=== PATIENT | male | born 1945 | race Caucasian/White ===

== ENCOUNTER 2023-07-26 11:16 | Day surgery (SDC) | payer MEDICARE, BC ==
[2023-07-26] VITALS (11 sets, daily range): BP systolic 106–176; BP diastolic 64–99; PULSE 68–81; RESP 13–26; TEMP 97.9; O2SAT 20–98
[~2023-07-26] VITALS: Ht 185.4 cm; Wt 85.3 kg
[2023-07-26] MEDS ORDERED: BENA40TA90 PO (11:42)
[2023-07-26] MEDS ORDERED: CALC1TAB2 PO (11:42)
[2023-07-26] MEDS ORDERED: ROSU10TA28 PO (11:42)
[2023-07-26] MEDS ORDERED: ASPI81TA52 PO (11:42)
[2023-07-26] MEDS ORDERED: [UNRECOGNIZED DRUG - OTHER] PO (11:42)
[2023-07-26] MEDS ORDERED: verapamil 2.5 mg/ml inj IV ONE (11:56)
[2023-07-26] MEDS ORDERED: LIDOcaine 1% (10mg/ml) 2ml vial ONE ×2 (11:56→12:10)
[2023-07-26] MEDS ORDERED: midazolam 1 mg/ML 2ml injection ONE (11:56)
[2023-07-26] MEDS ORDERED: fentaNYL/PF 50MCG/1 ML 2ML syringe ONE (11:56)
[2023-07-26] MEDS ORDERED: iohexol 350MG/ML 100ml bottle IV ONE (11:57)
[2023-07-26] MEDS ORDERED: heparin 1,000unit/ml 10ml vial 10 ML ONE (11:57)
[2023-07-26] MEDS ORDERED: nitroGLYCERIN 500mcg/5mL D5W 5 ML IV ONE (11:58)
[2023-07-26] MEDS: normal saline 1,000 ML IV SCH (12:00)
[2023-07-26 12:02] LABS: BASOPHILS # (AUTO) 0.1 X10'3 (0-0.2); BASOPHILS % (AUTO) 0.7 % (0-1); EOSINOPHILS # (AUTO) 0.1 X10'3 (0-0.9); EOSINOPHILS % (AUTO) 0.8 % (0-6); HEMATOCRIT 45.3 % (42.0-52.0); HEMOGLOBIN 15.3 g/dl (14.0-17.9); LYMPHOCYTES # (AUTO) 1.5 X10'3 (1.1-4.8); LYMPHOCYTES % (AUTO) 18.9 % (21-51); MEAN CORPUSCULAR HEMOGLOBIN 32.4 PG (27.0-31.0); MEAN CORPUSCULAR HGB CONC 33.8 g/dL (33.0-36.5); MEAN CORPUSCULAR VOLUME 95.8 FL (78-98); MONOCYTES # (AUTO) 0.7 X10'3 (0-0.9); MONOCYTES % (AUTO) 8.5 % (2-12); NEUTROPHILS # (AUTO) 5.5 X10'3 (1.8-7.7); NEUTROPHILS % (AUTO) 71.1 % (42-75); PLATELET COUNT 213 X10'3 (140-440); RED BLOOD COUNT 4.73 X10'6 (4.70-6.10); RED CELL DISTRIBUTION WIDTH 13.9 % (11.5-14.5); WHITE BLOOD COUNT 7.7 X10'3 (4.5-11.0)
[2023-07-26 12:19] LABS: ALBUMIN 4.9 G/DL (3.4-5.0); ANION GAP 15 (8-16); BLOOD UREA NITROGEN 23 MG/DL (7-18); BUN/CREATININE RATIO 15.5 (10.0-20.0); CALCIUM 10.1 MG/DL (8.5-10.1); CHLORIDE 105 MMOL/L (99-107); CREATININE 1.48 MG/DL (0.60-1.10); GLUCOSE 100 MG/DL (70-104); POTASSIUM 3.8 MMOL/L (3.5-5.1); SODIUM 143 MMOL/L (135-145); TOTAL CARBON DIOXIDE 23.5 MMOL/L (24-32); eCRCL 46 ML/MIN; eGFR 46 ML/MIN
[2023-07-26 12:20] LABS: APTT 24 SECONDS (22-32); PROTHROMBIN TIME 10.3 SECONDS (9.0-12.0)
[2023-07-26] MEDS: LORazepam 0.5 MG tablet PO PRN (12:30)
[2023-07-26] MEDS: diphenhydrAMINE 25mg capsule PO PRN (12:30)
[2023-07-26 13:13] LABS: ISTAT HGB ART 13.3 g/dl (14.0-17.9); ISTAT HGB MIX 12.9 g/dl (14.0-17.9); ISTAT Hct ART 39 %PCV (42-52); ISTAT Hct MIX 38 %PCV (42-52); ISTAT O2 SATURATION ARTERIAL 95 % (95-98); ISTAT O2 SATURATION MIX VENOUS 71 % (60-80); ISTAT SOURCE ART; ISTAT SOURCE VEN
[2023-07-26 13:28] LABS: CHOL/HDL RATIO 2.2 (0.00-4.99); CHOLESTEROL 155 MG/DL (0-200); HDL CHOLESTEROL 71 MG/DL (35-60); TRIGLYCERIDES 81 MG/DL (20-135)
[2023-07-26 13:39] LABS: LDL CHOLESTEROL 65 MG/DL (50-100)
[2023-07-26] MEDS ORDERED: HYDROcodone/acetaminophen 5mg/325mg tablet PO PRN (13:45)
[2023-07-26] MEDS ORDERED: HYDROcodone/acetaminophen 10/325mg tab PO PRN (13:45)
== END 2023-07-26 17:20 | disposition home or self-care (01) ==
LOC: SSTAY O 11:16
PROVIDERS: ATTEND Student in an Organized Health Care Education/Training Program
DX: I35.0 Nonrheumatic aortic (valve) stenosis (principal); I25.10 Atherosclerotic heart disease of native coronary artery without angina pectoris; I10 Essential (primary) hypertension; E78.00 Pure hypercholesterolemia, unspecified; Z79.82 Long term (current) use of aspirin; Z79.899 Other long term (current) drug therapy
CPT/HCPCS: 36415; 80048; 80061; 82803; 85014; 85025; 85610; 85730; 93005; 93456; 99152; A6258; J1644; J2250; J3010; J3490; J7030; Q0163; Q9967; A6402; C1751; C1894

== ENCOUNTER 2023-09-06 10:33 | Outpatient (CLI) | payer MEDICARE, BC ==
[~2023-09-06 10:33] MED LIST: ASPI81TA52 PO; BENA40TA90 PO; CALC1TAB2 PO; ROSU10TA28 PO; [UNRECOGNIZED DRUG - OTHER] PO
[2023-09-06 11:18] LABS: BASOPHILS # (AUTO) 0.1 X10'3 (0-0.2); BASOPHILS % (AUTO) 0.8 % (0-1); EOSINOPHILS # (AUTO) 0.1 X10'3 (0-0.9); EOSINOPHILS % (AUTO) 0.7 % (0-6); HEMATOCRIT 46.2 % (42.0-52.0); HEMOGLOBIN 15.5 g/dl (14.0-17.9); LYMPHOCYTES # (AUTO) 1.4 X10'3 (1.1-4.8); LYMPHOCYTES % (AUTO) 16.3 % (21-51); MEAN CORPUSCULAR HEMOGLOBIN 32.2 PG (27.0-31.0); MEAN CORPUSCULAR HGB CONC 33.5 g/dL (33.0-36.5); MEAN PLATELET VOLUME 8.2 FL (7.4-10.4); MONOCYTES # (AUTO) 0.7 X10'3 (0-0.9); MONOCYTES % (AUTO) 8.8 % (2-12); NEUTROPHILS # (AUTO) 6.2 X10'3 (1.8-7.7); NEUTROPHILS % (AUTO) 73.4 % (42-75); PLATELET COUNT 232 X10'3 (140-440); RED BLOOD COUNT 4.82 X10'6 (4.70-6.10); RED CELL DISTRIBUTION WIDTH 14.3 % (11.5-14.5); WHITE BLOOD COUNT 8.5 X10'3 (4.5-11.0)
[2023-09-06 11:34] LABS: ALANINE AMINOTRANSFERASE 35 U/L (12-78); ALBUMIN 4.6 G/DL (3.4-5.0); ALBUMIN/GLOBULIN RATIO 1.2 (1.1-1.5); ALKALINE PHOSPHATASE 53 IU/L (46-116); ANION GAP 11 (8-16); ASPARTATE AMINO TRANSFERASE 33 U/L (10-37); BILIRUBIN,TOTAL 0.4 MG/DL (0.1-1.0); BLOOD UREA NITROGEN 26 MG/DL (7-18); BUN/CREATININE RATIO 19.1 (10.0-20.0); CALCIUM 9.8 MG/DL (8.5-10.1); CHLORIDE 103 MMOL/L (99-107); CREATININE 1.36 MG/DL (0.60-1.10); GLUCOSE 94 MG/DL (70-104); POTASSIUM 4.4 MMOL/L (3.5-5.1); SODIUM 138 MMOL/L (135-145); TOTAL CARBON DIOXIDE 23.7 MMOL/L (24-32); TOTAL PROTEIN 8.3 G/DL (6.4-8.2); eGFR 51 ML/MIN
[2023-09-06 11:40] LABS: PRO BRAIN NATRIURETIC PEPTIDE 315 PG/ML (0-450)
[2023-09-06] MEDS ORDERED: IODIXANOL 320 MG/ML INFUS..BTL 100ML IV ONE (11:51)
[2023-09-06 11:57] LABS: APTT 25 SECONDS (22-32); PROTHROMBIN TIME 10.5 SECONDS (9.0-12.0)
== END 2023-09-06 23:59 | disposition home or self-care (01) ==
LOC: RAD 10:33
PROVIDERS: ATTEND Internal Medicine Cardiovascular Disease
DX: R91.1 Solitary pulmonary nodule (principal); I35.0 Nonrheumatic aortic (valve) stenosis; R06.02 Shortness of breath; M43.17 Spondylolisthesis, lumbosacral region; I65.29 Occlusion and stenosis of unspecified carotid artery; I70.0 Atherosclerosis of aorta; R18.8 Other ascites; N32.89 Other specified disorders of bladder
CPT/HCPCS: 36415; 71046; 71275; 74174; 75572; 80053; 83880; 85025; 85610; 85730; J3490; Q9967